=== PATIENT | male | born 1985 | race Caucasian/White ===

== ENCOUNTER 2019-02-19 14:24 | Emergency (ER) | payer SELFPAY ==
[2019-02-19 15:36] VITALS: BP 149/80
[2019-02-19] MEDS ORDERED: Bupivacaine 0.25% SDV PF* 10 ML VIAL INJ ONE (15:40)
--- NOTE | 2019-02-19 15:46 | ED ---
Skin Complaint - HPI Summary HPI Summary: 33 yo WM c/o left thumb laceration handling a knife, slicing the lateral portion of left thumb, dorso-lateral side - History of Current Complaint Chief Complaint: UCLaceration Time Seen by Provider: 02/19/19 15:36 Stated Complaint: LEFT THUMB LACERATION Hx Obtained From: Patient Onset/Duration: Started Hours Ago Skin Exposure Onset/Duration: Hours Ago Timing: Constant Onset Severity: Moderate Current Severity: Moderate Pain Intensity: 3 - Allergy/Home Medications Allergies/Adverse Reactions: Allergies Allergy/AdvReac Type Severity Reaction Status Date / Time No Known Allergies Allergy Verified 02/19/19 15:28 Home Medications: Home Medications Dm/Acetaminophen/Doxylamine [Nighttime Cold-Flu Rlf Sftgl] 2 each PO BEDTIME PRN 02/19/19 [History Confirmed 02/19/19] PMH/Surg Hx/FS Hx/Imm Hx Previously Healthy: Yes - Surgical History Surgery Procedure, Year, and Place: b/l knee sx Infectious Disease History: No Infectious Disease History: Denies: Traveled Outside the [place] in Last 30 Days - Social History Alcohol Use: Occasionally Substance Use Type: Reports: None Smoking Status (MU): Unknown if Ever Smoked Type: Smokeless Tobacco Amount Used/How Often: 2-3 cans per wk Length of Time of Smoking/Using Tobacco: 2-3 yrs Review of Systems - ROS Summary Review of Systems Summary: Constitutional: Negative Eyes: Negative ENT: Negative Cardiovascular: Negative Respiratory: Negative Gastrointestinal: Negative Genitourinary: Negative Musculoskeletal: Negative Skin: left thumb laceration Neurological: Negative Psychological: Normal All Other Systems Reviewed And Are Negative: Yes Physical Exam - Summary Physical Exam Summary: Appearance: Positive: No Pain Distress Skin: Positive: "C" shaped 2cm laceration on left lateral thumb, intact skin flap, ROM intact, neg bleeding, NVI Head/Face: Positive: Normal Head/Face Inspection Eyes: Positive: Normal ENT: Positive: Normal ENT inspection Neck: Positive: Supple Respiratory/Lung Sounds: Positive: Clear to Auscultation Cardiovascular: Positive: Normal, RRR, S1, S2 Abdomen : soft, NT/ND Musculoskeletal: Positive: Normal, Strength/ROM Intact Neurological: Positive: CN Intact II-III Vital Signs On Initial Exam: Initial Vitals Temp Pulse Resp BP Pulse Ox 37.0 C 73 16 149/80 98 02/19/19 15:29 02/19/19 15:29 02/19/19 15:29 02/19/19 15:29 02/19/19 15:29 Procedures - Laceration/Wound Repair 1 Location: upper extremity - LEFT THUMB Description: Linear Betadine Prep?: No Irrigated w/ Saline (ccs): 20 - nurse irrigated and cleaned wound extensively Laceration/Wound Explored: clean Closure: Skin Adhesive, SteriStrips Debridement: minimal Layer Closure?: No Sterile Dressing Applied?: Yes Diagnostics - Vital Signs Vital Signs Temp Pulse Resp BP Pulse Ox 02/19/19 15:29 37.0 C 73 16 149/80 98 - Laboratory Lab Statement: Any lab studies that have been ordered have been reviewed, and results considered in the medical decision making process. Course/Dx - Course Assessment/Plan: wound repaired with dermabond and sterri-strip due to good amount of skin flap and great approximation of wound edges - Diagnoses Provider Diagnoses: Laceration of thumb without complication Discharge - Sign-Out/Discharge Documenting (check all that apply): Patient Departure All imaging exams completed and their final reports reviewed: No Studies - Discharge Plan Condition: Stable Disposition: HOME Patient Education Materials: Laceration (ED), Skin Adhesive Care (ED) - Billing Disposition and Condition Condition: STABLE Disposition: Home
[2019-02-19] MEDS ORDERED: Tetan/Diph/Pertus SYR(Tdap)* 0.5 ML SYR(BOOSTRIX) use SYR IM ONE (15:53)
== END 2019-02-19 17:13 | disposition home or self-care (01) ==
LOC: UCCORT 14:24
DX: S61.012A Laceration without foreign body of left thumb without damage to nail, initial encounter (principal); W26.0XXA Contact with knife, initial encounter; Y92.9 Unspecified place or not applicable
CPT/HCPCS: 12001; 90471; 90715; 99202; G0463

== ENCOUNTER 2019-02-21 13:27 | Emergency (ER) | payer SELFPAY ==
--- NOTE | 2019-02-21 14:16 | UC ---
Laceration HPI - HPI Summary HPI Summary: 33 yo male presents for a wound check. He tells me that he was seen here 2 days ago for a laceration to his left thumb. He had the laceration repaired with dermabond and steri strips and was rx'd anbx and advised to return today for a wound check. Pt states he has been keeping the bandage on and has had no issues such as increased pain, drainage, bleeding, or fever. - History Of Current Complaint Stated Complaint: RECHECK LEFT THUMB Time Seen by Provider: 02/21/19 14:16 Hx Obtained From: Patient Laceration Location: Finger Mechanism Of Injury: Sharp Trauma - Allergies/Home Medications Allergies/Adverse Reactions: Allergies Allergy/AdvReac Type Severity Reaction Status Date / Time No Known Allergies Allergy Verified 02/21/19 14:27 PMH/Surg Hx/FS Hx/Imm Hx - Additional Past Medical History Additional PMH: None - Surgical History Surgical History: Yes Surgery Procedure, Year, and Place: b/l knee sx - Family History Known Family History: Positive: None - Social History Lives: With Family Alcohol Use: Occasionally Substance Use Type: None Smoking Status (MU): Former Smoker Type: Smokeless Tobacco Amount Used/How Often: 2-3 cans per wk Length of Time of Smoking/Using Tobacco: 2-3 yrs Review of Systems All Other Systems Reviewed And Are Negative: Yes Constitutional: Positive: Negative Skin: Positive: Other - Laceration left thumb Respiratory: Positive: Negative Cardiovascular: Positive: Negative Neurovascular: Positive: Negative Musculoskeletal: Positive: Negative Neurological: Positive: Negative Psychological: Positive: Negative Physical Exam - Summary Physical Exam Summary: GENERAL: NAD. WDWN. No pain distress. SKIN: LEFT THUMB: Healing 2.0cm flap-like laceration. No erythema, drainage, bleeding, or TTP. CHEST: No accessory muscle use. Breathing comfortably and in no distress. CV: Pulses intact. Cap refill <2seconds NEURO: Alert. PSYCH: Age appropriate behavior. Triage Information Reviewed: Yes Vital Signs: Vital Signs: Temp Pulse Resp BP Pulse Ox 98.1 F 80 16 128/80 98 02/21/19 14:24 02/21/19 14:24 02/21/19 14:24 02/21/19 14:24 02/21/19 14:24 Vital Signs Reviewed: Yes Laceration Course/Dx - Course/Dx Course Of Treatment: Wound appears to be healing well. Advised to apply a bandage for the next 5-7 days or until well healed. - Diagnosis Provider Diagnosis: Laceration of left thumb Discharge - Sign-Out/Discharge Documenting (check all that apply): Patient Departure All imaging exams completed and their final reports reviewed: No Studies - Discharge Plan Condition: Stable Disposition: HOME Patient Education Materials: Acute Wound Care (ED) Referrals: No Primary Care Phys,NOPCP [Primary Care Provider] - Additional Instructions: If you develop a fever, shortness of breath, chest pain, new or worsening symptoms - please call your PCP or go to the ED immediately. Your blood pressure was high at todays visit. Please see your primary provider within 4 weeks for recheck and re-evaluation. Apply a band-aid to your wound until well healed - Billing Disposition and Condition Condition: STABLE Disposition: Home - Attestation Statements Provider Attestation: I was available for consult. This patient was seen by the [facility]. The patient was not presented to, seen by, or examined by me. -Leida
[2019-02-21 14:27] VITALS: BP 128/80
== END 2019-02-21 14:31 | disposition home or self-care (01) ==
LOC: UCCORT 13:27
DX: S61.012D Laceration without foreign body of left thumb without damage to nail, subsequent encounter (principal); X58.XXXD Exposure to other specified factors, subsequent encounter; Z87.891 Personal history of nicotine dependence
CPT/HCPCS: 99211; G0463